=== PATIENT | female | born 1940 | race Caucasian/White ===

== ENCOUNTER 2018-01-14 13:54 | Emergency (ER) | payer MEDICARE ==
[2018-01-14] MEDS ORDERED: PROCHLORPERAZINE INJ 5 MG/ML 2 ML VIAL IV PRN (14:57)
[2018-01-14] MEDS ORDERED: HYDROmorphone INJ* 2 MG/ML CARPUJECT SYRINGE IV SLOW PU ONE (14:57)
[2018-01-14] MEDS ORDERED: NS 0.9% 1000 ML* 1,000 ML IV ONE (14:57)
[2018-01-14] MEDS ORDERED: PROCHLORPERAZINE INJ 5 MG/ML 2 ML VIAL ONE (15:03)
[2018-01-14 15:13] LABS: ABS Basophils 0.1 10^3/ul (0-0.2); ABS Eosinophils 0 10^3/ul (0-0.6); ABS Lymphocytes 1.8 10^3/ul (1.0-4.8); ABS Monocytes 0.6 10^3/ul (0-0.8); ABS Neutrophils 7.8 10^3/ul (1.5-7.7); ABS Nucleated RBC 0 10^3/ul; Eosinophil % 0.4 % (0-6); Hematocrit 42 % (35-47); Hemoglobin 14.3 g/dl (12.0-16.0); Lymphocyte % 17.4 % (25-47); Mean Corpuscular HGB Conc 34 g/dl (31-36); Mean Corpuscular Hemoglobin 31 pg (27-31); Mean Corpuscular Volume 90 fL (80-97); Nucleated Red Blood Cells % 0; Platelet Count 230 10^3/ul (150-450); Red Cell Distribution Width 14 % (10.5-15); White Blood Count 10.3 10^3/ul (3.5-10.8)
[2018-01-14 15:36] LABS: EGFR Non-African American 68.9 (>60)
--- NOTE | 2018-01-14 15:47 | RAD ---
INDICATION: Right flank pain COMPARISON: None TECHNIQUE: Noncontrast axial source images were acquired from the level hemidiaphragms to the symphysis pubis as part of CT imaging for renal stone. Lung bases: The lung bases are clear. There is partial eventration right hemidiaphragm Liver: There is mild hepatomegaly. Noncontrast imaging shows a 1 cm right hepatic cyst or hemangioma. There is no ductal dilatation. Gallbladder: Cholecystectomy. Spleen: The spleen is normal in size. The noncontrast CT appearance is remarkable for splenic granulomas. Pancreas: Noncontrast imaging shows no pancreatic mass or ductal dilitation. Adrenal glands: No masses are identified. Kidneys/Bladder: There is no evidence of nephrolithiasis or CT evidence of hydronephrosis. Noncontrast imaging shows no evidence of a renal mass. The bladder is unremarkable.. Adenopathy: There is no evidence of intraperitoneal or retroperitoneal adenopathy. Evaluation is limited without oral contrast. Fluid collections: There are no free or localized fluid collections. Vessels: The aorta and iliac vessels are normal in caliber. There are no significant atherosclerotic changes. The IVC appears normal Pelvic organs: The uterus and adnexa appear normal GI tract: There is a large right inguinal hernia containing bowel. The bowel proximal to the herniated segment is mildly dilated and contains feculent material. The bowel appears mildly edematous. There is are no findings of pneumatosis. There are no findings of free intraperitoneal air The upper GI tract is otherwise unremarkable. There are moderate diverticula of the lower GI tract. The appendix is identified and appears normal. Overall evaluation of the bowel is limited without oral contrast. Soft tissues: Moderate-sized right inguinal hernia. Osseous structures: There are no acute osseous findings. IMPRESSION: 1. No CT urolithiasis. 2. Moderate-sized right inguinal hernia containing bowel with feculent material suggesting partial obstruction. Mildly edematous proximal small bowel loops proximal to the hernia.
--- NOTE | 2018-01-14 17:14 | ED ---
Jayson Hannon Angela, scribed for Umer Dominguez MD on 01/14/18 at 1456 . Abdominal Pain/Female - HPI Summary HPI Summary: This pt is a 77 y/o female presenting to [facility] c/o diffuse abdominal pain since 09:00 this morning. Pt notes she was already awake before onset of her pain and had cereal and half a cup of coffee at 08:30. Pt notes she had gas and did belch this morning. Denies feeling acid reflux. Denies nausea, vomiting, fever. Her abd pain is mildly alleviated with lying down. Pt notes her pain is as bad when she had her "gallbladder attack." Pt is s/p cholecystectomy and states she has had intermittent intestinal discomfort since this. PMHx includes cholecystectomy, , liver biopsy (1976). Allergic to penicillin. She is not on any medications currently. - History of Current Complaint Chief Complaint: EDAbdPain Stated Complaint: SEVERE ABD PAIN Time Seen by Provider: 01/14/18 14:45 Hx Obtained From: Patient Onset/Duration: Lasting Hours, Still Present Timing: Hours Severity Currently: Severe Pain Intensity: 10 Pain Scale Used: 0-10 Numeric Location: Diffuse Radiates: No Aggravating Factor(s): Nothing Alleviating Factor(s): Position - lying down Associated Signs and Symptoms: Negative: Nausea, Vomiting Allergies/Adverse Reactions: Allergies Allergy/AdvReac Type Severity Reaction Status Date / Time MS Penicillins [PCN] Allergy Hives Verified 01/14/18 15:20 Penicillins Allergy Hives Verified 01/14/18 15:20 ENVIRONMENTAL/SEASONAL Allergy CONGESTION, Uncoded 01/14/18 15:20 HAYFEVER SNEEZE, Home Medications: Home Medications NK [No Home Medications Reported] 01/14/18 [History Confirmed 01/14/18] PMH/Surg Hx/FS Hx/Imm Hx Endocrine/Hematology History: Denies: Hx Diabetes Cardiovascular History: Reports: Other Cardiovascular Problems/Disorders - CHOLESTEROL CONTROL WITH MEDICATIONS Denies: Hx Hypertension, Hx Pacemaker/ICD Respiratory History: Reports: Hx Asthma - A CHILD - NO PROBLEMS SINCE History: Denies: Hx Renal Disease Musculoskeletal History: Reports: Hx Arthritis Sensory History: Reports: Hx Cataracts - HX OF, Hx Contacts or Glasses - GLASSES Denies: Hx Hearing Aid Opthamlomology History: Reports: Hx Cataracts - HX OF, Hx Contacts or Glasses - GLASSES Psychiatric History: Denies: Hx Panic Disorder - Cancer History Cancer Type, Location and Year: LYMPHOMA Hx Chemotherapy: Yes - 1991, 1992 Hx Radiation Therapy: Yes - Surgical History Surgery Procedure, Year, and Place: 1999 RIGHT TOTAL KNEE REPLACEMENT, [facility] [place]. 2004 LEFT TOTAL KNEE REPLACEMENT, [facility] [place]. 1991 LYMPH NODE EXCISION ON NECK, [facility] [place]. 1992 LIVER BIOPSY, [facility] [place]. 1976 CERVICAL BIOPSY, [facility]. [facility]. [facility] BILATERAL HAND SURGERY, [place]. 1957 TONSILLECTOMY, [place],. 2013 LAPAROSCOPIC CHOLECYSTECTOMY, [facility] [place]. 2014 BILATERAL CATARCTS EXTRACTION WITH IOL IMPLANTS, [facility] [place] Hx Anesthesia Reactions: No Infectious Disease History: No Infectious Disease History: Denies: Traveled Outside the US in Last 30 Days - Family History Known Family History: Positive: Cardiac Disease - Father: CHF, Respiratory Disease - Father: asthma Family History: Mother: gastric CA. - Social History Alcohol Use: Occasionally Alcohol Amount: 1 DRINK/MONTH Substance Use Type: Reports: None Smoking Status (MU): Never Smoked Tobacco Have You Smoked in the Last Year: No Review of Systems Negative: Fever, Chills Eyes: Negative ENT: Negative Positive: Abdominal Pain. Negative: Vomiting, Nausea All Other Systems Reviewed And Are Negative: Yes Physical Exam - Summary Physical Exam Summary: Appearance: The patient is well-nourished in acute pain. Skin: The skin is warm and dry and skin color reflects adequate perfusion. HEENT: The head is normocephalic and atraumatic. The pupils are equal and reactive. The conjunctivae are clear and without drainage. Nares are patent and without drainage. Mouth reveals moist mucous membranes and the throat is without erythema and exudate. The external ears are intact. The ear canals are patent and without drainage. The tympanic membranes are intact. Neck: the neck is supple with full range of motion and non-tender. There are no carotid bruits. There is no neck vein distension. Respiratory: Chest is non-tender. Lungs are clear to auscultation and breath sounds are symmetrical and equal. Cardiovascular: Heart is regular rate and rhythm. There is no murmur or rub auscultated. There is no peripheral edema and pulses are symmetrical and equal. Abdomen: The abdomen is soft. Pt has diffuse mild tenderness. Pt also has right lower quadrant tenderness. There are normal bowel sounds heard in all four quadrants and there is no organomegaly palpated. Musculoskeletal: There is no back tenderness noted. Extremities are non-tender with full range of motion. There is good capillary refill. There is no peripheral edema or calf tenderness elicited. Neurological: Patient is alert and oriented to person, place and time. The patient has symmetrical motor strength in all four extremities. Cranial nerves are grossly intact. Deep tendon reflexes are symmetrical and equal in all four extremities. Psychiatric: The patient has an appropriate affect and does not exhibit any anxiety or depression. Triage Information Reviewed: Yes Vital Signs On Initial Exam: Initial Vitals Temp Pulse Resp BP Pulse Ox 94.6 F 66 16 102/87 100 01/14/18 14:11 01/14/18 14:11 01/14/18 14:11 01/14/18 14:11 01/14/18 14:11 Vital Signs Reviewed: Yes Diagnostics - Vital Signs Vital Signs Temp Pulse Resp BP Pulse Ox 01/14/18 14:48 74 25 175/91 100 01/14/18 14:47 12 01/14/18 14:11 94.6 F 66 16 102/87 100 - Laboratory Lab Results: Lab Results 01/14/18 01/14/18 01/14/18 Range/Units 15:05 15:06 15:06 WBC 10.3 (3.5-10.8) 10^3/ul RBC 4.70 (4.00-5.40) 10^6/ul Hgb 14.3 (12.0-16.0) g/dl Hct 42 (35-47) % MCV 90 (80-97) fL MCH 31 (27-31) pg MCHC 34 (31-36) g/dl RDW 14 (10.5-15) % Plt Count 230 (150-450) 10^3/ul MPV 8.0 (7.4-10.4) um3 Neut % (Auto) 75.6 (38-83) % Lymph % (Auto) 17.4 L (25-47) % [place] % (Auto) 5.9 (0-7) % Eos % (Auto) 0.4 (0-6) % Baso % (Auto) 0.7 (0-2) % Absolute Neuts (auto) 7.8 H (1.5-7.7) 10^3/ul Absolute Lymphs (auto) 1.8 (1.0-4.8) 10^3/ul Absolute Monos (auto) 0.6 (0-0.8) 10^3/ul Absolute Eos (auto) 0 (0-0.6) 10^3/ul Absolute Basos (auto) 0.1 (0-0.2) 10^3/ul Absolute Nucleated RBC 0 10^3/ul Nucleated RBC % 0 Sodium 134 L (135-145) mmol/L Potassium 3.6 (3.5-5.0) mmol/L Chloride 99 L (101-111) mmol/L Carbon Dioxide 20 L (22-32) mmol/L Anion Gap 15 H (2-11) mmol/L BUN 12 (6-24) mg/dL Creatinine 0.81 (0.51-0.95) mg/dL Est GFR ( Amer) 83.4 (>60) Est GFR (Non-Af Amer) 68.9 (>60) BUN/Creatinine Ratio 14.8 (8-20) Glucose 131 H (70-100) mg/dL Lactic Acid 4.0 H* (0.5-2.0) mmol/L Calcium 10.0 (8.6-10.3) mg/dL Total Bilirubin 0.60 (0.2-1.0) mg/dL AST 19 (13-39) U/L ALT 14 (7-52) U/L Alkaline Phosphatase 68 (34-104) U/L C-Reactive Protein 1.17 (<8.01) mg/L Total Protein 7.8 (6.4-8.9) g/dL Albumin 4.3 (3.2-5.2) g/dL Globulin 3.5 (2-4) g/dL Albumin/Globulin Ratio 1.2 (1-3) Lipase 18 (11.0-82.0) U/L Result Diagrams: 01/14/18 15:06 01/14/18 15:06 Lab Statement: Any lab studies that have been ordered have been reviewed, and results considered in the medical decision making process. - CT Abdomen/Pelvis CT CT Interpretation: Positive (See Comments) - IMPRESSION: 1. No CT urolithiasis. 2. Moderate-sized right inguinal hernia containing bowel with feculent material suggesting partial obstruction. Mildly edematous proximal small bowel loops proximal to the hernia. Dr. Dominguez has reviewed this radiology report. CT Interpretation Completed By: Radiologist Re-Evaluation - Re-Evaluation First Eval Re-Evaluation Time: 16:47 Comment: Dr. Negro in to see the pt. Abdominal Pain Fem Course/Dx - Course Course Of Treatment: Ms Mac presented with diffuse abdominal pain but was more tender in the right lower quadrant although there was diffuse tenderness. Labs were okay except for a lactate of 4. CT revealed a right inguinal hernia with some partial obstructive signs. Dr. Negro was contacted, came to the emergency department and reduced the hernia. She will follow-up with him in the office and is discharged in stable condition. - Diagnoses Provider Diagnoses: Inguinal hernia - Provider Notifications Discussed Care Of Patient With: Esteban Negro Time Discussed With Above Provider: 16:34 Instructed by Provider To: Other - I discussed pt care with Dr. Negro, surgeon , who will come see the pt in the ED. Discharge - Sign-Out/Discharge Documenting (check all that apply): Discharge/Admit/Transfer - Discharge - Discharge Plan Condition: Stable Disposition: HOME Patient Education Materials: Inguinal Hernia (ED) Referrals: Esteban Negro MD [Medical Doctor] - Corazon Mueller MD [Primary Care Provider] - Additional Instructions: Please follow up with Dr. Negro, surgeon. RETURN TO THE ED FOR ANY WORSENING SYMPTOMS. - Billing Disposition and Condition Condition: STABLE Disposition: Home The documentation as recorded by the Jayson jaramillo Angela accurately reflects the service I personally performed and the decisions made by me, Umer Dominguez MD.
[2018-01-14 17:53] VITALS: BP 133/64
--- NOTE | 2018-01-14 21:21 | CONS ---
CC: Dr. Corazon Mueller CONSULTATION REPORT: DATE OF CONSULT: 01/14/18 CHIEF COMPLAINT: Abdominal pain. HISTORY OF PRESENT ILLNESS: Ms. Mac is a 77-year-old female in her usual state of good health, h as had increasing abdominal pain through the day. No nausea, no vomiting. A little queasiness. She has been urinating normally, has not moved her bowels today, but otherwise her bowels have been norm al. There has been no accident, injury, or trauma. No antecedent illness. No chronic abdominal pro blems. PAST MEDICAL HISTORY: Benign. PAST SURGICAL HISTORY: Her only surgeries include a laparoscopic cholecystectomy about 5 years ago w hich was uneventful and she has had some chronic gassiness and bloatiness since then, but thinks that today's bloating symptoms are very different. 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 MEDICATIONS: She denies any regular medications. ALLERGIES: She quotes an allergy to PENICILLIN, which she thinks caused hives. FAMILY HISTORY: Noncontributory. No bleeding tendencies or anesthesia reactions. SOCIAL HISTORY: She is a nonsmoker, rare drinker. Lives with her significant other. She does not exercise regularly. REVIEW OF SYSTEMS: Negative for any cardiac disease, chest pain, heart pain, angina pain or the like . No emphysema, bronchitis, or chronic lung disease. No current hepatobiliary disease. She did hav e a laparoscopic cholecystectomy in the past. No diabetes, thyroid, or other endocrine. No history of colitis, Crohn's disease, or anything of the sort. No chronic recurrent urinary infections or kid fernando stones and no chronic gynecologic problems. PHYSICAL EXAM: She is a well-developed, well-nourished appearing woman, appears consistent with stat ed age. Vital signs show she is afebrile. Pulse is 74 and regular, respirations 22, O2 saturation 1 00%, blood pressure 175/91. The head and neck are unremarkable. She does not appear acutely ill. C olor is good. She is not diaphoretic. Neck is supple without any adenopathy. Breathing is easy and nonlabored. Heart is regular. Abdomen is slightly obese and soft with mild diffuse tenderness. No peritonitis. No guarding. No rebound. She has a right inguinal hernia, which is readily palpable and is approximately the size of hens egg. The left side is without hernia. The extremities are wel l perfused and without edema. PROCEDURE: Attention was turned to the right inguinal hernia and with a modest amount of manipulatio n, this was able to be completely reduced. At that point, the mass was completely gone, I could feel the hernia defect. IMPRESSION AND PLAN: I discussed the situation with her and with her partner and I do not think she needs emergent surgery at this point. I think she should followup in the office and we need to arran ge an elective hernia repair. I have gone over all this with them. They understand the rationale an d also the need to call if symptoms re-emerge, so we will plan on seeing her as an outpatient to perf orm elective repair for right inguinal hernia. [id number]/[facility] #: [id number]
== END 2018-01-14 17:52 | disposition home or self-care (01) ==
LOC: ED 13:54
DX: K40.90 Unilateral inguinal hernia, without obstruction or gangrene, not specified as recurrent (principal); Z90.49 Acquired absence of other specified parts of digestive tract; Z85.72 Personal history of non-Hodgkin lymphomas; Z92.3 Personal history of irradiation; Z92.21 Personal history of antineoplastic chemotherapy; Z88.0 Allergy status to penicillin
CPT/HCPCS: 36415; 74176; 80053; 83605; 83690; 85025; 86140; 96361; 96374; 99282; J0780; J1170

== ENCOUNTER → 2018-02-10 07:16 | Day surgery (SDC) | payer MEDICARE ==
[~2018-02-10 07:16] MED LIST: Buffered Lidocaine 0.9% SYRIN* 5 ML/SYR SYRINGE INTRADERM ONE; Bupivacaine 0.25% SDV PF* 10 ML VIAL INJ ONE; Bupivacaine 0.5% PF 10 ML VIAL INJ ONE; Clindamycin 900 MG IVPREMIX(* 900 MG/50 ML SDV IV ONE; Ketorolac INJ* 30 MG/ML 1 ML VIAL ONE; Lidocain 1% EPI 1:100,000 * 30 ML MDV ONE; Midazolam* 1 MG/ML 2 ML VIAL (2 MG) ONE; Naloxone* 0.4 MG/ML 1 ML VIAL IV PRN; Ondansetron INJ* 2 MG/ML VIAL IV PRN; Propofol* 10 MG/ML 20 ML BTL IV PUSH ONE; fentaNYL* 50 MCG/ML 2 ML VIAL (100 MCG VIAL) ONE
[2018-02-10 09:49] VITALS: BP 124/69
--- NOTE | 2018-02-10 21:23 | OP ---
CC: Esteban Negro MD; Dr. Corazon Mueller * DATE OF OPERATION: 02/10/18 - [facility] DATE OF : 44 SURGEON: Esteban Negro MD CA[employer]ING [employer] LOCKER ROOM SERVICER: Carlyn Corey NP ANESTHESIOLOGIST: Dr. Ruiz. ANESTHESIA: LMAC. PRE-OP DIAGNOSIS: Right inguinal hernia. POST-OP DIAGNOSIS: Right inguinal hernia. OPERATIVE PROCEDURE: Open repair right inguinal hernia with mesh. DESCRIPTION OF PROCEDURE: The patient was supine on the operative table. After adequate intravenous sedation, compression stockings, Joaquim Hugger warmer, and intravenous antibiotics, the right groin was prepped with antiseptic and draped in a sterile fashion. Local infiltrative anesthesia was administered. Approximately 6 cm incision was created and carried down through the tissue layers to the external oblique which was opened in the direction of its fibers. The round ligament was identified. There was no direct space hernia. There was an indirect space hernia. The internal ring was about 1.5 cm across. The round ligament was divided and a cone mesh plug was placed into the internal ring, sutured there with 2-0 Vicryl. A second piece of mesh was placed over the inguinal floor, tacked down to tubercle and laterally and the external oblique was closed over top with 2-0 Vicryl, Gloria's with 3-0 Vicryl, skin with 4-0 Prolene followed by sterile dressing. She tolerated the procedure well , was awakened and brought to the recovery in good condition. No complications. No drains. No pathologic specimens. Sponge and instrument counts correct. Estimated blood loss 10 mL. [id number]/[facility] #: [id number] [facility] HOSPITALCarissa
== END | disposition home or self-care (01) ==
LOC: OR 07:16
PROVIDERS: ATTEND Surgery
DX: K40.90 Unilateral inguinal hernia, without obstruction or gangrene, not specified as recurrent (principal); Z85.72 Personal history of non-Hodgkin lymphomas; Z68.31 Body mass index [BMI] 31.0-31.9, adult; E78.5 Hyperlipidemia, unspecified; M19.90 Unspecified osteoarthritis, unspecified site
CPT/HCPCS: C1781; J1885; J2250; J2704; J3010; J3490

== ENCOUNTER 2018-10-16 20:39 | Observation (INO) | payer MEDICARE ==
--- NOTE | 2018-10-16 22:04 | ED ---
Abdominal Pain/Female - HPI Summary HPI Summary: Pt is a 78 y/o F presenting to the ED with a chief complaint of abd pain onset 1999 in the RLQ while she was sitting. She had a hernia repair in January of [address] that the current pain is in. She reports nausea and abd pain. She denies back pain and vomiting. - History of Current Complaint Chief Complaint: EDAbdPain Stated Complaint: SEVERE ABD PAIN PER PT Time Seen by Provider: 10/16/18 21:55 Hx Obtained From: Patient Onset/Duration: Sudden Onset, Lasting Hours, Still Present Timing: Hours Severity Initially: Severe Severity Currently: Severe Pain Intensity: 10 Pain Scale Used: 0-10 Numeric Location: Discrete At: RLQ Radiates: No Character: Sharp Aggravating Factor(s): Movement, Deep Breaths Alleviating Factor(s): Nothing Associated Signs and Symptoms: Positive: Nausea. Negative: Back Pain, Vomiting Allergies/Adverse Reactions: Allergies Allergy/AdvReac Type Severity Reaction Status Date / Time Penicillins Allergy Intermediate Hives Verified 10/16/18 21:58 ENVIRONMENTAL/SEASONAL Allergy Intermediate CONGESTION, Uncoded 10/16/18 21:58 HAYFEVER SNEEZE, PMH/Surg Hx/FS Hx/Imm Hx Previously Healthy: Yes Endocrine/Hematology History: Denies: Hx Bone Marrow Disease, Hx Diabetes, Hx Anemia Cardiovascular History: Reports: Other Cardiovascular Problems/Disorders - HYPERLIPIDEMIA- CONTROLLED WITH MEDICATIONS Denies: Hx Hypertension, Hx Pacemaker/ICD Respiratory History: Reports: Hx Asthma - A CHILD - NO PROBLEMS SINCE GI History: Reports: Other GI Disorders - 2014 LAP ROGER, OCCASIONAL DIARRHEA POST LAP ROGER, History: Denies: Hx Renal Disease Musculoskeletal History: Reports: Hx Arthritis - OSTEO Comment Only: Other Musculoskeletal History - BILAT TKR Sensory History: Reports: Hx Contacts or Glasses - GLASSES Denies: Hx Cataracts, Hx Glaucoma, Hx Hearing Aid Opthamlomology History: Reports: Hx Contacts or Glasses - GLASSES Denies: Hx Cataracts, Hx Glaucoma Psychiatric History: Denies: Hx Panic Disorder - Cancer History Cancer Type, Location and Year: LYMPHOMA Hx Chemotherapy: Yes - 1991, 1992 Hx Radiation Therapy: Yes - Surgical History Surgery Procedure, Year, and Place: 1957 TONSILLECTOMY [place]. 1960 BILATERAL HAND SURGERY [place]. 1970 [facility]. 1991 EXCISION LYMPH NODE NECK [facility] [place]. 1992 LIVER BIOPSY [facility]. 1999 RIGHT TOTAL KNEE REPLACEMENT [facility]. 2004 LEFT TOTAL KNEE REPLACEMENT [facility]. 2013 LAPAROSCOPIC CHOLECYSTECTOMY [facility]. 08/23/2013 LEFT CATARCT EXTRACTION WITH IOL IMPLANT [facility]. 08/30/2013 RIGHT CATARCT EXTRACTION WITH IOL IMPLANT [facility] Hx Anesthesia Reactions: Yes - SEVERE N/V POST-OP - Immunization History Date of Tetanus Vaccine: unk Date of Influenza Vaccine: none Infectious Disease History: No Infectious Disease History: Denies: Traveled Outside the US in Last 30 Days - Family History Known Family History: Positive: Cardiac Disease - Father: CHF, Respiratory Disease - Father: asthma Family History: Mother: gastric CA. - Social History Alcohol Use: Occasionally Alcohol Amount: 1 DRINK/WEEK Hx Substance Use: No Substance Use Type: Reports: None Hx Tobacco Use: No Smoking Status (MU): Never Smoked Tobacco Have You Smoked in the Last Year: No Review of Systems Positive: Abdominal Pain, Nausea. Negative: Vomiting Negative: Myalgia - back pain All Other Systems Reviewed And Are Negative: Yes Physical Exam - Summary Physical Exam Summary: VITAL SIGNS: Reviewed. GENERAL: Patient is a well-developed and nourished female who is lying comfortable in the stretcher. Patient is not in any acute respiratory distress. HEAD AND FACE: No signs of trauma. No ecchymosis, hematomas or skull depressions. No sinus tenderness. EYES: PERRLA, EOMI x 2, No injected conjunctiva, no nystagmus. EARS: Hearing grossly intact. Ear canals and tympanic membranes are within normal limits. MOUTH: Oropharynx within normal limits. NECK: Supple, trachea is midline, no adenopathy, no JVD, no carotid bruit, no c- spine tenderness, neck with full ROM. CHEST: Symmetric, no tenderness at palpation LUNGS: Clear to auscultation bilaterally. No wheezing or crackles. CVS: Regular rate and rhythm, S1 and S2 present, no murmurs or gallops appreciated. ABDOMEN: Approximately egg-sized indurated and tender mass over R inguinal abd. No signs of distention. No rebound no guarding, and no masses palpated. Bowel sounds are normal. EXTREMITIES: FROM in all major joints, no edema, no cyanosis or clubbing. NEURO: Alert and oriented x 3. No acute neurological deficits. Speech is normal and follows commands. SKIN: Dry and warm Triage Information Reviewed: Yes Vital Signs On Initial Exam: Initial Vitals Temp Pulse Resp BP Pulse Ox 97.2 F 64 18 87/50 99 10/16/18 20:59 10/16/18 20:59 10/16/18 20:59 10/16/18 20:59 10/16/18 20:59 Vital Signs Reviewed: Yes Diagnostics - Vital Signs Vital Signs Temp Pulse Resp BP Pulse Ox 10/16/18 20:59 97.2 F 64 18 87/50 99 - Laboratory Result Diagrams: 10/16/18 22:11 10/16/18 22:11 Lab Statement: Any lab studies that have been ordered have been reviewed, and results considered in the medical decision making process. - EKG 2340 Cardiac Rate: NL - 82bpm EKG Rhythm: Sinus Rhythm ST Segment: Non-Specific Ectopy: None Abdominal Pain Fem Course/Dx - Course Course Of Treatment: Pt is a 78 y/o F presenting to the ED with a chief complaint of abd pain onset 1999 in the RLQ while she was sitting. She had a hernia repair in January of [address] that the current pain is in. She reports nausea and abd pain. She denies back pain and vomiting. Dr. Baez recommended a CT of the abd. An EKG at 2340 shows NSR 82bpm with L axis deviation and nonspecific ST wave changes. Dr. Baez accepts the pt for admission at 233 with dx of R inguinal hernia. The pt is stable and agreeable with this plan. - Diagnoses Provider Diagnoses: Right inguinal hernia Discharge - Sign-Out/Discharge Documenting (check all that apply): Patient Departure - Discharge Plan Condition: Stable Disposition: ADMITTED TO [facility] Referrals: Corazon Muellre MD [Primary Care Provider] - - Attestation Statements Document Initiated by Scribe: Yes Documenting Scribe: Thu Mcrae Provider For Whom Kasiibyvonne is Documenting (Include Credential): Shannan Downing MD. Scribe Attestation: Thu Hannon, kasiibed for Shannan Downing MD. on 10/16/18 at 2346. Status of Scribe Document: Ready Consult Consult: 2199 - Spoke with Dr. Baez who recommended a CT scan for the pt. 2329 - Dr. Baez accepts the pt for admission.
[2018-10-16] MEDS ORDERED: Morphine 4 MG/ML VIAL (1 ml) 4 MG/ML VIAL IV ONE (22:10)
[2018-10-16] MEDS ORDERED: NS 0.9% 1000 ML** 1,000 ML IV ONE (22:10)
[2018-10-16] MEDS ORDERED: Ondansetron INJ* 2 MG/ML VIAL IV ONE (22:11)
[2018-10-16 22:24] LABS: ABS Basophils 0.1 10^3/ul (0-0.2); ABS Eosinophils 0.1 10^3/ul (0-0.6); ABS Lymphocytes 2.1 10^3/ul (1.0-4.8); ABS Monocytes 0.6 10^3/ul (0-0.8); ABS Neutrophils 8.1 10^3/ul (1.5-7.7); ABS Nucleated RBC 0 10^3/ul; Eosinophil % 0.5 %; Hematocrit 41 % (33-41); Hemoglobin 13.5 g/dL (12.0-16.0); Lymphocyte % 19.3 %; Mean Corpuscular HGB Conc 33 g/dL (31-36); Mean Corpuscular Hemoglobin 30 pg (27-31); Mean Corpuscular Volume 90 fL (80-97); Nucleated Red Blood Cells % 0; Platelet Count 231 10^3/uL (150-450); Red Blood Count 4.51 10^6 /uL (3.70-4.87); Red Cell Distribution Width 14 % (10.5-15)
[2018-10-16] MEDS ORDERED: PROCHLORPERAZINE INJ 5 MG/ML 2 ML VIAL ONE (22:30)
[2018-10-16] MEDS ORDERED: PROCHLORPERAZINE INJ 5 MG/ML 2 ML VIAL IM ONE (22:34)
[2018-10-16 22:42] LABS: ALT 12 U/L (7-52); AST 17 U/L (13-39); Albumin 4.1 g/dL (3.2-5.2); Albumin/Globulin Ratio 1.4 (1-3); Alkaline Phosphatase 60 U/L (34-104); Anion Gap 12 mmol/L (2-11); BUN/Creatinine Ratio 15.6 (8-20); Blood Urea Nitrogen 14 mg/dL (6-24); C Reactive Protein < 1.00 mg/L (<8.01); CO2 Carbon Dioxide 21 mmol/L (22-32); Calcium 9.6 mg/dL (8.6-10.3); Chloride 98 mmol/L (101-111); EGFR African American 73.7 (>60); EGFR Non-African American 60.9 (>60); Glucose 166 mg/dL (70-100); Sodium 131 mmol/L (135-145); Total Protein 7.1 g/dL (6.4-8.9)
[2018-10-16] MEDS ORDERED: Acetaminophen TAB* 325 MG PO PRN (23:44)
[2018-10-16] MEDS ORDERED: Ibuprofen TAB* 600 MG PO PRN (23:44)
[2018-10-16] MEDS ORDERED: Ondansetron ODT TAB* 4 MG PO PRN (23:50)
[2018-10-16] MEDS ORDERED: Morphine INJ* 2 MG/ML 1 ML SYRINGE (TWO MG - NEW SYRINGE VERSION) IM PRN (23:51)
--- NOTE | 2018-10-17 01:28 | HP ---
CC: Corazon Mueller MD * HISTORY AND PHYSICAL: DATE OF ADMISSION: 10/16/18 CHIEF COMPLAINT: Right inguinal hernia. HISTORY OF PRESENT ILLNESS: This is a 78-year-old female with a history of open right inguinal hernia repair in January 2018. The patient had presented to the emergency room prior to that with a painful mass in the right groin that was reduced. The patient states that she was in her normal state of health until about 8:15 this evening when she again noted abdominal pain in the lower abdomen with a tender mass in the right groin. This was identical to her previous presentation. She came to the emergency room. CT scan was then performed and this did demonstrate a hernia involving bowel. She reports she had some nausea, but no vomiting. She denies any diarrhea or constipation, had a bowel movement earlier in the day. In the emergency room, the patient had laboratory work including elevated WBCs. Surgical consultation was requested. PAST MEDICAL HISTORY: Significant for the above mentioned illness as well as a history of low-grade cervical malignancy in 1976, a lymphoma in 1991, treated with chemotherapy and radiation, osteoarthritis. PAST SURGICAL HISTORY: Laparoscopic cholecystectomy in 2013. She had bilateral total knee replacements in 1999 and 2004. She had a section in 1970, cervical surgery for her gynecologic malignancy in 1976. MEDICATIONS: Multivitamin. ALLERGIES: PENICILLIN causes hives. FAMILY HISTORY: Notable for gastric cancer in her mother, CHF in her father, thyroid disease in her daughter. Brother has a horseshoe kidney. SOCIAL HISTORY: She does not smoke, rarely drinks, and walks regularly. She lives with significant other in [place]. REVIEW OF SYSTEMS: No history of lightheadedness, dizziness, stroke, or seizure. She had an episode of syncope 5 years ago in [place] and had a workup there that included an MRI and that was negative. She has history of asthma as a child; no emphysema or tuberculosis. She has no cardiac disease, angina, hypertension, or abnormal heart rhythms. She denies diabetes or thyroid disease. She denies liver disease. She has a history of UTIs, but denies any current dysuria or hematuria. She denies hiatal hernia or reflux disease. She denies Crohn's disease or colitis. Her [employer] history as above. Musculoskeletal: As above. PHYSICAL EXAMINATION GENERAL: She is well-appearing 78-year-old female, in no acute distress. VITAL SIGNS: Temperature is 97.2, pulse 65, respirations 20, O2 sat 100% on room air, blood pressure 140/74. HEENT: Head is normocephalic and atraumatic. Sclerae are anicteric. Mucous membranes are moist. She has no otorrhea or rhinorrhea. NECK: Her neck is symmetrical. Her trachea is midline. She has no palpable lymphadenopathy or masses. PULMONARY: Her lungs are clear to auscultation bilaterally without wheezes, rales, or rhonchi. CARDIAC: Her heart is regular, S1 and S2. No murmurs, rubs, or gallops appreciated. ABDOMEN: Her abdomen is noted to have well-healed Pfannenstiel incision. It is soft, nondistended, nontender. There was a tender mass in the right inguinal region, which was reduced with moderate effort. No palpable masses in the left groin. EXTREMITIES: Notable for scars on both knees anteriorly. No cyanosis, clubbing , or edema. DIAGNOSTIC STUDIES/LAB DATA: WBC is 11, hemoglobin 13.5, platelets 231. No left shift. Chemistry: Her sodium is 131, potassium 4.0, chloride 98, bicarb 21, BUN 14, creatinine 0.9, glucose 166, lactate was 4.1, her calcium is 9.6. Total bili, AST, ALT, alk phos were normal. CRP was normal less than 1. Albumin and lipase were normal. CT scan from 10/16/18 of the abdomen and pelvis without contrast was reviewed, and images notable for right inguinal hernia involving small bowel. IMPRESSION: This is a 78-year-old female, who presented to the emergency room with a recurrent right inguinal hernia with incarceration, which was able to be reduced in the emergency room. She will require urgent repair. PLAN/RECOMMENDATION: The patient will be admitted as OBV. She will be allowed clear liquids as she has no current IV access. I will give her morphine IM p.r.n., Zofran sublingual as needed, and she can have some oral meds as needed. She will be added to the operating room schedule for the morning on 10/17/18. Likely, laparoscopic repair right inguinal hernia with mesh will be performed. I discussed the plan with the patient and significant other who accompanied her, and patient is in agreement. [id number]/[facility] #: [id number] [facility]
[2018-10-17 01:49] LABS: Urine Appearance Cloudy; Urine Bacteria Absent (Absent); Urine Bilirubin Negative (Negative); Urine Blood 1+ (Negative); Urine Color Yellow; Urine Glucose Negative (Negative); Urine Ketones Negative (Negative); Urine Nitrite Negative (Negative); Urine Protein 1+(30 mg/dL) (Negative); Urine Red Blood Cell 2+(6-10/hpf) (Absent); Urine Specific Gravity 1.019 (1.010-1.030); Urine Squamous Epithelial Cell Present (Absent); Urine Urobilinogen Negative (Negative); Urine White Blood Cell 3+(>20/hpf) (Absent)
[2018-10-17] MEDS ORDERED: Heparin VIAL(*) 5000 UNITS/ML VIAL (FIVE THOUSAND) SUBCUT SCH (06:00)
[2018-10-17 06:51] LABS: ABS Basophils 0 10^3/ul (0-0.2); ABS Eosinophils 0 10^3/ul (0-0.6); ABS Lymphocytes 1.9 10^3/ul (1.0-4.8); ABS Monocytes 0.6 10^3/ul (0-0.8); ABS Neutrophils 7.6 10^3/ul (1.5-7.7); ABS Nucleated RBC 0 10^3/ul; Eosinophil % 0.2 %; Hematocrit 37 % (33-41); Hemoglobin 12.4 g/dL (12.0-16.0); Lymphocyte % 18.5 %; Mean Corpuscular HGB Conc 34 g/dL (31-36); Mean Corpuscular Hemoglobin 31 pg (27-31); Mean Corpuscular Volume 90 fL (80-97); Nucleated Red Blood Cells % 0; Platelet Count 210 10^3/uL (150-450); Red Blood Count 4.07 10^6 /uL (3.70-4.87); Red Cell Distribution Width 14 % (10.5-15); White Blood Count 10.2 10^3/uL (3.5-10.8)
[2018-10-17 07:19] LABS: BUN/Creatinine Ratio 20.6 (8-20); Calcium 8.9 mg/dL (8.6-10.3); EGFR African American 111.2 (>60); EGFR Non-African American 91.9 (>60); Potassium 3.9 mmol/L (3.5-5.0)
[2018-10-17] MEDS ORDERED: Lactated Ringers 1000 ML Bag* 1,000 ML IV SCH ×3 (08:00→11:00)
[2018-10-17] MEDS ORDERED: Ondansetron INJ* 2 MG/ML VIAL IV PRN (10:03)
[2018-10-17] MEDS ORDERED: Buffered Lidocaine 1% SYRIN* 1 ML/SYRINGE INTRADERM ONE (10:28)
[2018-10-17] MEDS ORDERED: Gabapentin CAP(*) 300 MG PO ONE (10:28)
[2018-10-17] MEDS ORDERED: Acetaminophen TAB* 325 MG PO ONE (10:28)
[2018-10-17] MEDS ORDERED: Gabapentin CAP(*) 300 MG ONE (13:30)
[2018-10-17] MEDS ORDERED: Acetaminophen TAB* 325 MG ONE (13:31)
[2018-10-17] MEDS ORDERED: Midazolam* 1 MG/ML 2 ML VIAL (2 MG) ONE (14:26)
[2018-10-17] MEDS ORDERED: fentaNYL* 50 MCG/ML 2 ML VIAL (100 MCG VIAL) ONE (14:26)
--- NOTE | 2018-10-17 14:28 | CONS ---
CC: Dr. Mueller* CONSULTATION NOTE: DATE OF CONSULT: 10/17/18 PRIMARY CARE PROVIDER: Dr. Corazon Mueller. SERVICE REQUESTING CONSULTATION: Surgical service. REASON FOR CONSULT: Preoperative risk assessment/irregular heart rate. HISTORY OF PRESENT ILLNESS: This is a 78-year-old female with past medical history of open inguinal hernia repair in January 2018, but in her usual state of health, presented to the emergency room with abdominal pain with a tender mass in her right groin. She underwent a CAT scan, demonstrated the mass did involve bowel. She was seen by Dr. Baez in the emergency room on 10/16/18 and the hernia was reduced. There is now plan for a laparoscopic right inguinal hernia repair under general anesthesia for which this author was asked to evaluate the patient. Additionally, overnight, the patient was in significant amount of pain as relayed by the patient herself when she was thought to have an irregular heart rate auscultated by the overnight RN. Additionally, asked to evaluate based on this new history and on this new piece of information. On evaluating the patient's metabolic equivalence, she does walk daily with her dog about half a mile; however, stops frequently not because of her own exercise tolerance, but because the dog is getting older. She does walk longer in the summer. She has 11 stairs at home, brings up the laundry. She never has any shortness of breath or chest pain. In the winter, the patient and her spouse additionally get activity walking around the big-box stores, including [employer] without any difficulty in breathing or chest discomfort. The patient does relay she recently had URI for 2 weeks resulting in what was thought to be a sinus infection 1 week ago and now recently completed a course of antibiotics. She relays low-grade temperatures, which have now been abated. She has had multiple surgeries in the past, most recently open inguinal hernia repair in January of 2018. She does relay emesis in recovery status post anesthesia, but no problems with the anesthesia itself. She does relay that she did not have any similar problems with emesis status post inguinal hernia repair or her cholecystectomy in 2013. The patient does to her irregular heart rate that she did not feel it. She has been asymptomatic. She has never had irregular heart rate, does not feel any increasing shortness of breath or decrease in exercise tolerance over the preceding months or years, and was in significant pain at that time. An EKG at that time was notable for sinus arrhythmia. PAST MEDICAL HISTORY: Includes open inguinal repair, January 2018; cervical cancer , status post colon biopsy, 1976; lymphoma, 1991, of her left neck, status post chemo/RT, not involving her lungs to the best of her knowledge; laparoscopic cholecystectomy, 2013; bilateral knee replacements, 1999 and 2004; in 1970; question of hyperlipidemia, diet controlled. No history of hypertension, diabetes, CKD, CAD, CVAs. MEDICATIONS: Multivitamin at home. ALLERGIES: To PENICILLIN causes hives; however, no anaphylaxis. FAMILY HISTORY: Gastric cancer in her mother. Father had CHF. SOCIAL HISTORY: No tobacco. Rare alcohol approximately 1 per month. Currently retired. REVIEW OF SYSTEMS: As per HPI including recent URI symptoms culminating in suspected sinus infection status post antibiotics. Otherwise, all other systems negative unless reviewed above. PHYSICAL EXAM: Vitals: In the hospital 126/57, heart rate 71, respiratory rate 16, she is between 95% and 100% on room air, T-max is 98.6 during this hospital stay. Appears stated age, lying approximately 30 degrees in bed, interactive, pleasant, in no apparent distress. Oropharynx is clear. She has moist mucous membranes. Sclerae are anicteric. She has no cervical or supraclavicular lymphadenopathy. Has regular rate and rhythm. She does have several irregular beats which are thought to be ectopic, sinus arrhythmia indicated above. No murmurs, rubs, or gallops. Her lungs are clear to auscultation. Her abdomen is soft, nontender, nondistended. She has no mass at this point in her right groin. Her extremities are warm and well perfused. She has no clubbing, cyanosis, or edema. She is alert and oriented x3. Her cranial nerves II through XII are intact. She has no apparent anxiety or agitation. DIAGNOSTIC STUDIES/LAB DATA: Labs reviewed, noted for a white blood cell count of 10.2, platelets 210, hemoglobin 12.4. Sodium was 126, decreased from 131 day prior to presentation; chloride 95; BUN is 13; creatinine is 0.63; lactic acid was 4.1, decreased to 1.9 with vigorous hydration. Urine is noted both for protein, blood, leuk esterase as well as squamous epithelial cells. Data reviewed: CT abdomen and pelvis. Impression: Small bowel obstruction due to small bowel-containing right inguinal hernia, stranding suggests possible early strangulation or perforation. There is a small stable hepatic cyst with no followup necessary. EKG: Sinus arrhythmia, left axis, normal R-wave progression, no Qs, no ST or T - wave changes. ASSESSMENT AND PLAN: A 78-year-old female with past medical history notable for many surgeries including open inguinal repair January 2018, otherwise diet- controlled hyperlipidemia, presenting with right inguinal hernia with early strangulation, reduced in the emergency room, seen by this author for preoperative risk assessment and for hyponatremia and sinus arrhythmia. Sinus arrhythmia. Suspect in the setting of significant pain, acute illness. Maintain electrolytes within normal limit, K greater than 4, magnesium greater than 2. Monitor, if becomes tachycardic, with a repeat EKG or bradycardic with a repeat EKG, does not necessarily require telemetry for this sinus arrhythmia, no further intervention, does not pose increased risk for surgery. Hyponatremia. Suspect evolving syndrome of inappropriate secretion of antidiuretic hormone in the setting of acute illness as well as significant pain. Reducing lactated Ringer's from 150 to 75. If needs additional fluids, would recommend normal saline at this time. Does need to be followed with repeat BMP in the morning. This should not delay the patient's operation if it is thought necessary and it does not incur increased risk at this time. Careful postoperative trending. Surgical risk assessment. Her RCRI is 0 conferring for a laparoscopic repair, would increase to 1 based on severity of surgery if performed open. She does not need additional testing and will be considered optimized prior to the surgery. I will continue to follow to manage sinus arrhythmia as well as hyponatremia in the postoperative course. Please do not hesitate to call with additional questions or concerns. DVT prophylaxis. Per primary service. [id number]/[facility] #: [id number] EULOGIO
[2018-10-17] MEDS ORDERED: Clindamycin 900 MG/D5W BAG(*) 900 MG/50 ML BAG IVPB ONE (14:34)
[2018-10-17] MEDS ORDERED: Bupivacaine 0.5%* 50 ML VIAL ONE (14:46)
[2018-10-17] MEDS ORDERED: Famotidine IV* 10 MG/ML 2 ML (20 mg) ONE (14:59)
[2018-10-17] MEDS ORDERED: Propofol* 10 MG/ML 20 ML BTL ONE (15:15)
[2018-10-17] MEDS ORDERED: Succinylcholine* 20 MG/ML 10 ML VIAL ONE (15:15)
[2018-10-17] MEDS ORDERED: Dexamethasone IV* 4 MG/ML 1 ML (4 MG) ONE (15:15)
[2018-10-17] MEDS ORDERED: EPHEDrine (Pressors)* 50 MG/ML VIAL ONE (15:35)
[2018-10-17] MEDS ORDERED: PROCHLORPERAZINE INJ 5 MG/ML 2 ML VIAL IV PRN (15:53)
[2018-10-17] MEDS ORDERED: diPHENhydraMINE IV* 50 MG/ML 1 ml VIAL (BENADRYL) IV PRN (15:53)
[2018-10-17] MEDS ORDERED: fentaNYL* 50 MCG/ML 2 ML VIAL (100 MCG VIAL) IV PRN (15:53)
[2018-10-17] MEDS ORDERED: DiMENhydriNATE IV* 50 MG/ML VIAL IV PUSH PRN (15:53)
[2018-10-17] MEDS ORDERED: Naloxone* 0.4 MG/ML 1 ML VIAL IV PRN (15:53)
[2018-10-17] MEDS ORDERED: Ketorolac INJ* 30 MG/ML 1 ML VIAL ONE (16:26)
[2018-10-17] MEDS ORDERED: Ondansetron INJ* 2 MG/ML VIAL ONE (16:26)
--- NOTE | 2018-10-17 17:03 | OP ---
Operative Report - Blank - Operative Report Date of Operation: 10/17/18 Note: Brief Operative Note Preop Dx: Right inguinal hernia Postop Dx: same Procedure: Inguinal hernia repair with mesh, laparoscopic converted to open Anesthesia: GET Surgeon: Pily Warp Splitter: DONA Sy Fluids: 1400 mL LR EBL: <10 mL Specimen: none Drains: none Findings: dictated
[2018-10-17 19:33] VITALS: BP 122/59
--- NOTE | 2018-10-17 23:27 | OP ---
DATE OF OPERATION: 10/17/18 - ROOM #331 DATE OF : 44 ATTENDING SURGEON: Michael Nascimetno MD PRE-OP DIAGNOSIS: Recently incarcerated right inguinal hernia. POST-OP DIAGNOSIS: Recently incarcerated right inguinal hernia. OPERATIVE PROCEDURE: Attempted laparoscopic converted to open right inguinal hernia repair with mesh. INDICATIONS FOR PROCEDURE: Recent incarcerated bowel in right inguinal hernia, recurrent, reduced last night by Dr. Baez. Risks of repair of recurrent inguinal hernia included but not limited to bleeding; infection; injury to intraabdominal contents including the bowel, bladder, inguinal nerves, or vessels, recurrence of hernia; medical issues including MS, PE, arrhythmia explained to the patient who seemed to understand, agreed to the procedure, and all questions were answered. DESCRIPTION OF PROCEDURE: The patient was taken to the operating room, placed supine. Preoperative antibiotics were given. After a successful induction of general endotracheal anesthesia, the abdomen was prepped and draped in sterile fashion including the groins. An infraumbilical incision was made and carried down through the subcutaneous tissue using Bovie cautery exposing the fascia. The fascia was opened over the left rectus medial and the rectus was retracted laterally and I was able to place a finger into the space towards the pelvis. The dissecting balloon was then passed into this space and advanced toward the pubis. The balloon was inflated. The balloon was removed. A trocar was placed through this space and a 10 mm camera was placed through the trocar. Pneumoperitoneum was noted when the camera was placed through the trocar. There was an open area of the peritoneum, and due to apparent adhesions, the peritoneum would not separate nicely from the preperitoneal space and I could not get CO2 insufflation into the preperitoneal space in order to perform the repair in a TEP fashion. Decision was then made to convert to an open procedure. The camera glanced into the abdomen to evaluate for any injuries and none were noted. The fascia at the infraumbilical location was then suture closed using interrupted 0 Vicryl suture. Skin in the right groin was anesthetized with 0.5% Marcaine plain. An incision was made over the right groin and carried down through the subcutaneous tissues and Gloria fascia exposing the external oblique, which was opened and pulled away from the area of the pubis, and inguinal ligament and an obvious herniation of adipose tissue was noted with the sac. This was inverted back into the abdomen. Mesh plug was then placed through the fat, large plug, and sutured pubis, inguinal ligament, and abdominal wall using interrupted 0 Vicryl suture. Once defect was successfully plugged, the wound was irrigated and checked for hemostasis which was intact. EBL was minimal. Gloria fascia was closed with running 3-0 Vicryl stitch. The skin was closed with Monocryl and glue was applied to the skin. The umbilical skin was closed with Monocryl and glue was applied. The patient tolerated the procedure well. She was extubated and taken to the recovery in stable condition. [id number]/[facility] #: [id number] MTDD
== END 2018-10-17 19:30 | disposition home or self-care (01) ==
LOC: ED 20:39 → SSU 23:44
PROVIDERS: ADMIT Surgery; ATTEND Surgery
DX: K40.90 Unilateral inguinal hernia, without obstruction or gangrene, not specified as recurrent (principal); R10.31 Right lower quadrant pain; Z88.0 Allergy status to penicillin; Z85.72 Personal history of non-Hodgkin lymphomas; R11.0 Nausea; Z85.41 Personal history of malignant neoplasm of cervix uteri
CPT/HCPCS: 36415; 74176; 80048; 80053; 81003; 81015; 83605; 83690; 85025; 86140; 86850; 86900; 86901; 87086; 93005; 96372; 96374; 96375; 99284; A9270-GY; G0378; J0330; J0780; J1100; J1885; J2250; J2270; J2405; J2704; J3010

== ENCOUNTER 2019-07-06 15:36 | Emergency (ER) | payer MEDICARE ==
[2019-07-06 15:45] VITALS: BP 149/76
--- NOTE | 2019-07-06 16:17 | UC ---
Lower Extremity/Ankle HPI - HPI Summary HPI Summary: 79-year-old woman comes in with chief complaint of right leg pain. Yesterday patient slipped and fell on the ice and landed on her right buttock. Since then she been having pain in the lower femur right knee and upper right lower leg on the tibia and fibula. Of the quadriceps femoral area is improved. The pain is worse in the proximal tibia fibula. Patient has been able to bear weight. Patient had bilateral knee replacements approximately 19 years ago. Patient has a follow-up appointment with orthopedics on July 14, 2019 and they requested that she get x-rays done prior to the appointment to ensure that she did not need to be seen sooner. - History of Current Complaint Chief Complaint: UCLowerExtremity Stated Complaint: KNEE INJURY Time Seen by Provider: 07/06/19 15:40 Pain Intensity: 4 - Allergies/Home Medications Allergies/Adverse Reactions: Allergies Allergy/AdvReac Type Severity Reaction Status Date / Time Penicillins Allergy Intermediate Hives Verified 07/06/19 15:45 ENVIRONMENTAL/SEASONAL Allergy Intermediate CONGESTION, Uncoded 10/16/18 21:58 HAYFEVER SNEEZE, PMH/Surg Hx/FS Hx/Imm Hx Previously Healthy: Yes - Surgical History Surgical History: Yes Surgery Procedure, Year, and Place: 1957 TONSILLECTOMY [place]. 1960 BILATERAL HAND SURGERY [place]. 1970 [facility]. 1991 EXCISION LYMPH NODE NECK [facility]. [place] L[place]OP[place] [facility]. 2018 hernia. 2019 hernia. 2000 RIGHT TOTAL KNEE REPLACEMENT [facility]. 2005 LEFT TOTAL KNEE REPLACEMENT [facility]. 2013 LAPAROSCOPIC CHOLECYSTECTOMY [facility]. 08/23/2013 LEFT CATARCT EXTRACTION WITH IOL IMPLANT [facility]. RIGHT CATARCT EXTRACTION WITH IOL IMPLANT [facility] - Family History Known Family History: Positive: Cardiac Disease - Father: CHF, Respiratory Disease - Father: asthma Family History: Mother: gastric CA. - Social History Alcohol Use: Occasionally Alcohol Amount: 1 DRINK/WEEK Substance Use Type: None Smoking Status (MU): Never Smoked Tobacco Have You Smoked in the Last Year: No - Immunization History Most Recent Influenza Vaccination: unknown Most Recent Pneumonia Vaccination: in the past Review of Systems All Other Systems Reviewed And Are Negative: Yes Constitutional: Positive: Negative Skin: Positive: Negative Eyes: Positive: Negative ENT: Positive: Negative Respiratory: Positive: Negative Cardiovascular: Positive: Negative Gastrointestinal: Positive: Negative Motor: Positive: Negative Neurovascular: Positive: Negative Musculoskeletal: Positive: Other: - SEE HPI Neurological: Positive: Negative Psychological: Positive: Negative Is Patient Immunocompromised?: No Physical Exam Triage Information Reviewed: Yes Appearance: Well-Appearing, No Pain Distress, Well-Nourished Vital Signs: Initial Vital Signs Temp 98.1 F 07/06/19 15:39 Pulse 74 07/06/19 15:39 Resp 14 07/06/19 15:39 BP 149/76 07/06/19 15:39 Pulse Ox 100 07/06/19 15:39 Vital Signs Reviewed: Yes Eye Exam: Normal Eyes: Positive: Conjunctiva Clear Neck: Positive: Supple Respiratory: Positive: No respiratory distress Musculoskeletal: Positive: Other: - Right leg is tender to palpation of the proximal tibia and fibula. No obvious deformity. Some tenderness to palpation in the right knee on the lateral and medial aspect. None tender in the popliteal. Anterior knee is nontender to palpation. Patient has full range of motion of the knee. Ankle is nontender with full range of motion. No sensation deficit. Knee is stable to exam. Neurological: Positive: Alert Psychological: Positive: Age Appropriate Behavior Skin Exam: Normal Lower Extremity Course/Dx - Course Course Of Treatment: Hand Laminator: Edwin Almazan C ([id number]) Asset Protection Detective: ORTIZ ( ORTIZ) Report Date: 07/06/2019 16:12:00 Report Status: Final ====== Start of Report Content Patient Name: ALLYSON GROSS Medical Record# : [id number] Ordering Physician: Rashi Givens MD Acct.#: [id number] : 1940 Age: 79 Sex: F Location: [facility] Exam Date: 1543 ADM Status: REG ER Order Information: TIBIA FIBULA RIGHT Accession Number: [id number] CPT: 80743 Indication: RIGHT knee and lower leg pain post fall. Comparison: No relevant prior exams available on the [facility]. Technique: RIGHT knee: AP, tunnel, lateral, sunrise views. AP and lateral views RIGHT tibia and fibula. REPORT AND IMPRESSION: #. Normally located RIGHT knee prosthesis. Negative for periprosthetic fracture or evidence for component loosening. Probable small joint effusion. #. Negative for fracture of the tibia or fibula. #. Normal alignment at the proximal and distal tibia fibula articulations. #. Bone density appears decreased throughout. #. Nonfocal soft tissue swelling. < Electronically signed by Edwin Almazan MD in OV> 07/06/191608 Dictated By: Edwin Almazan MD Dictated Date/Time: 07/06/191604 Transcribed Date/Time: 1604 Copy to: CC:Corazon Mueller MD; Rashi Givens MD Imaging - [facility] Imaging - [facility] Imaging - [facility] [address] [place] [address] ph ([phone]) ph ([phone]) ph ([phone]) ===== End of Report Content Hand Laminator: Edwin Almazan C, ([id number]) Asset Protection Detective: ORTIZ ( NUANCE) Report Date: 07/06/2019 16:12:00 Report Status: Final ====== Start of Report Content Patient Name: ALLYSON GROSS Medical Record# : [id number] Ordering Physician: Rashi Givens MD Acct.#: [id number] : 1940 Age: 79 Sex: F Location: [facility] Exam Date: 1542 ADM Status: REG ER Order Information: KNEE RIGHT 4+ VWS Accession Number : [id number] CPT: 99601 Indication: RIGHT knee and lower leg pain post fall. Comparison: No relevant prior exams available on the [facility]. Technique: RIGHT knee: AP, tunnel, lateral, sunrise views. AP and lateral views RIGHT tibia and fibula. REPORT AND IMPRESSION: #. Normally located RIGHT knee prosthesis. Negative for periprosthetic fracture or evidence for component loosening. Probable small joint effusion. #. Negative for fracture of the tibia or fibula. #. Normal alignment at the proximal and distal tibia fibula articulations. #. Bone density appears decreased throughout. #. Nonfocal soft tissue swelling. ___ <Electronically signed by Edwin Almazan MD in OV> 07/06/191608 Dictated By: Edwin Almazan MD Dictated Date/Time: 07/06/191604 Transcribed Date/Time: 07/06/191604 Copy to: CC:Corazon Mueller MD; Rashi Givens MD Imaging - [facility] Imaging - [facility] [address] [address] ph ([phone]) ph ([phone]) ph ([phone]) End of Report Content I discussed the x-rays with the patient. Patient reports knee feels stable when walking on exam. Plan at this time will be ibuprofen and ice and follow- up with orthopedics as scheduled on July 14, 2019. Patient's been using a cane to help with ambulation which she will continue to use as needed. Reevaluate sooner if any questions or concerns. - Differential Dx/Diagnosis Provider Diagnosis: Right knee pain, Contusion of right leg Discharge ED - Sign-Out/Discharge Documenting (check all that apply): Post-Discharge Follow Up All imaging exams completed and their final reports reviewed: Yes - Discharge Plan Condition: Stable Disposition: HOME Patient Education Materials: Swollen Knee Joint (ED), Knee Pain (ED), Contusion in Adults (ED) Referrals: Corazon Mueller MD [Primary Care Provider] - Prasanna Morales MD [Medical Doctor] - Additional Instructions: FOLLOW UP WITH ORTHOPEDICS ON 07/14/19 SCHEDULED. USE IBUPROFEN DIRECTED NEEDED. GET REEVALUATED SOONER IF NOT IMPROVED OR WORSE OR ANY QUESTIONS OR CONCERNS. - Billing Disposition and Condition Condition: STABLE Disposition: Home
== END 2019-07-06 16:35 | disposition home or self-care (01) ==
LOC: UCEAST 15:36
DX: S80.11XA Contusion of right lower leg, initial encounter (principal); M25.561 Pain in right knee; Z96.653 Presence of artificial knee joint, bilateral; Z88.0 Allergy status to penicillin; Z91.09 Other allergy status, other than to drugs and biological substances; W00.0XXA Fall on same level due to ice and snow, initial encounter; Y92.9 Unspecified place or not applicable
CPT/HCPCS: 99211; G0463